=== PATIENT | male | born 1940 | race Caucasian/White ===

== ENCOUNTER 2017-06-23 16:41 | Observation (INO) | payer OTHER, BC ==
[~2017-06-23] VITALS: Ht 182.9 cm; Wt 102.0 kg
[~2017-06-23 16:41] MED LIST: ACEBUTOLOL HCL200 MG PO; ADULT LOW DOSE81 M1 PO; CALCIUM 500 +1 EACH PO; CENTRUM ADULTS1 EACH PO; FISH OIL 1,0001 EAC7 PO; Flagyl PO; Ginkgo Biloba PO; LIPITOR20 MG PO; VITAMIN B-6100 MG PO; Vicodin,Norco 5/325 PO; [UNRECOGNIZED DRUG - OTHER] PO
[2017-06-23 17:44] LABS: HEMATOCRIT 44.1 % (38.0-50.0); HEMOGLOBIN 15.2 G/DL (12.5-16.6); MCH 32.1 PG (29.0-34.0); MCHC 34.5 G/DL (30.0-36.0); MCV 93.2 FL (86-99); PLATELET COUNT 219 K/uL (156-360); RBC DIS.WIDTH-CV 12.9 % (11.8-14.6); RBC DIS.WIDTH-SD 44.5 % (39-53); RED BLOOD COUNT 4.73 M/uL (4.00-5.50)
[2017-06-23 17:50] LABS: CHLORIDE 103 mEq/L (99-109); SODIUM 135 mEq/L (136-147)
[2017-06-23 17:51] LABS: GLUCOSE 103 mg/dL (70-99)
[2017-06-23 17:55] LABS: CREATININE 1.1 mg/dL (0.6-1.3); GFR ESTIMATE (CALCULATED) > 59 mL/min/ (58.99-99999)
[2017-06-23 17:56] LABS: UREA NITROGEN (BUN) 21 mg/dL (9-23)
[2017-06-23 20:00] LABS: TROP-I INTERPRETATION NEGATIVE; TROPONIN-I 0.01 ng/mL (0.0-0.30)
[2017-06-23] MEDS ORDERED: PREDNISONE10 MG PO ×2 (20:27→20:28)
[2017-06-23] MEDS ORDERED: FLONASE16 G1 BOTH NARES (20:28)
[2017-06-23 22:22] VITALS: BP 173/79
[2017-06-24 02:51] LABS: TROP-I INTERPRETATION NEGATIVE; TROPONIN-I < 0.01 ng/mL (0.0-0.30)
[2017-06-24 04:00] VITALS: BP 157/78
[2017-06-24 07:28] VITALS: BP 161/89
[2017-06-24 08:15] VITALS: BP 161/85
[2017-06-24 08:27] LABS: TROP-I INTERPRETATION NEGATIVE; TROPONIN-I < 0.01 ng/mL (0.0-0.30)
[2017-06-24 08:51] LABS: HDL CHOLESTEROL 53 MG/DL (Desirable>=40); LDL CHOLESTEROL 99 mg/dL (Desirable<100); NON-HDL CHOLESTEROL 116 mg/dL (Desirable<160); TOTAL CHOLESTEROL 169 mg/dL (Desirable<200); TRIGLYCERIDES 84 MG/DL (Normal: <150)
[2017-06-24 11:15] VITALS: BP 135/87
[2017-06-24] MEDS ORDERED: LOSARTAN POTASS25 MG PO (11:37)
== END 2017-06-24 14:25 | disposition home or self-care (01) ==
LOC: EME 16:41 → EDOF 20:32 → 5WEST 20:32 → ENRESERV 20:33 → 5WEST 22:12
PROVIDERS: Physician Assistant; Physician Assistant Medical
DX: R07.9 Chest pain, unspecified (principal); I10 Essential (primary) hypertension; E78.5 Hyperlipidemia, unspecified; G47.33 Obstructive sleep apnea (adult) (pediatric); R42 Dizziness and giddiness; I44.0 Atrioventricular block, first degree; R00.1 Bradycardia, unspecified; R06.02 Shortness of breath; R61 Generalized hyperhidrosis; N40.0 Benign prostatic hyperplasia without lower urinary tract symptoms; M19.90 Unspecified osteoarthritis, unspecified site; Z86.19 Personal history of other infectious and parasitic diseases; Z80.0 Family history of malignant neoplasm of digestive organs; Z79.82 Long term (current) use of aspirin; Z88.1 Allergy status to other antibiotic agents; Z88.8 Allergy status to other drugs, medicaments and biological substances; Z91.041 Radiographic dye allergy status
CPT/HCPCS: 71046; 80048; 80061; 84443; 84484; 85027; 87502; 93005; 99281; 99285; G0378; J0360; J1644; J7512